=== PATIENT | male | born 1945 | race African-American/Black ===

== ENCOUNTER 2018-12-04 04:53 | Emergency (ER) | payer SELFPAY ==
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
== END 2018-12-04 06:30 | disposition home or self-care (01) ==
LOC: ER 04:53
DX: Z04.1 Encounter for examination and observation following transport accident (principal); I10 Essential (primary) hypertension; I48.91 Unspecified atrial fibrillation; E11.9 Type 2 diabetes mellitus without complications; Z79.4 Long term (current) use of insulin; V43.52XA Car driver injured in collision with other type car in traffic accident, initial encounter; Y92.414 Local residential or business street as the place of occurrence of the external cause
CPT/HCPCS: 36415; 70450; 72125; 93005; 93010; 99284